=== PATIENT | female | born 1975 | race Caucasian/White ===

== ENCOUNTER → 2022-12-03 16:08 | Outpatient (CLI) | payer OTHER, SELFPAY ==
--- NOTE | 2022-12-03 | DI.MG.S_ITS ---
BILATERAL DIGITAL SCREENING MAMMOGRAM 3D/2D WITH CAD: 12/03/2022 CLINICAL: Routine screening. Family history of breast cancer. Comparison is made to exams dated: 01/05/2021 mammogram, 11/18/2017 mammogram, and 08/02/2016 mammogram - Outside facility. Both breasts are heterogeneously dense, which may obscure small masses (category c / 51-75% glandular tissue). Current study was also evaluated with a Computer Aided Detection (CAD) system. No significant masses, calcifications, or other findings are seen in either breast. There has been no significant interval change. IMPRESSION: NEGATIVE There is no mammographic evidence of malignancy. A 1 year screening mammogram is recommended. Based on the Tyrer Cuzick model (a risk assessment model) the patient's lifetime risk is 12.8% and her 10 year risk is 2.8%. According to the ACR, ACS, and NCCN guidelines, an annual breast MRI exam along with mammogram is recommended if the patient's lifetime risk is 20% or greater. This exam was interpreted at Station ID: [id number]. NOTE: For mammograms, a report in lay terms will be sent to the patient. Approximately 15% of breast malignancies will not be visualized mammographically. In the management of a palpable breast mass, a negative mammogram must not discourage biopsy of a clinically suspicious lesion. Electronically Signed By: Ajay barron/es:12/05/2022 13:18:25 letter sent: Normal Exam ACR BI-RADS Category 1: Negative 3341F
== END ==
PROVIDERS: PCP Registered Nurse; Referring Provider Registered Nurse; Visit Provider Registered Nurse
DX: Z12.31 Encounter for screening mammogram for malignant neoplasm of breast (principal); Z80.3 Family history of malignant neoplasm of breast
CPT/HCPCS: 77063; 77067

== ENCOUNTER → 2023-07-26 09:22 | Outpatient (CLI) | payer OTHER, SELFPAY ==
--- NOTE | 2023-07-26 09:23 | DI.US.S_ITS ---
ULTRASOUND OF RIGHT AXILLA: 07/26/2023 CLINICAL: Palpable right axilla lump. Comparison is made to exams dated: 07/26/2023 mammogram, 12/03/2022 mammogram - [facility], 01/05/2021 mammogram, and 11/18/2017 mammogram - Outside facility. Color flow and real-time ultrasound of the right axilla were performed. Beavers scale images of the real-time examination were reviewed. No enlarged right axillary lymph nodes. No mass or fluid collection. IMPRESSION: BENIGN There is no sonographic evidence of malignancy. No enlarged right axillary lymph nodes. No mass or fluid collection. Possible scant ectopic breast tissue at the right axilla seen on mammogram. Exam findings were conveyed to the patient. Patient is advised to monitor for significant change. A 1 year screening mammogram is recommended. This exam was interpreted at Station ID: [id number]. Electronically Signed By: Shaahb Murray M.D. slc/:07/26/2023 11:52:00 Entry: - 07/30/2023 11:33:33 letter sent: Normal Exam Ultrasound BI-RADS: 2 Benign
--- NOTE | 2023-07-26 09:23 | DI.MG.S_ITS ---
UNILATERAL RIGHT DIGITAL DIAGNOSTIC MAMMOGRAM 3D/2D: 07/26/2023 CLINICAL: Palpable right axilla lump. Comparison is made to exams dated: 12/03/2022 mammogram - [facility], 01/05/2021 mammogram, and 11/18/2017 mammogram - Outside facility. The right breast is heterogeneously dense, which may obscure small masses (category c / 51-75% glandular tissue). No significant masses, calcifications, or other findings are seen in the breast. Small right axillary lymph nodes appear normal and unchanged. IMPRESSION: INCOMPLETE: NEEDS ADDITIONAL IMAGING EVALUATION No mammographic evidence of malignancy. A targeted ultrasound is recommended and will immediately follow. Based on the Tyrer Cuzick model (a risk assessment model) the patient's lifetime risk is 12.8% and her 10 year risk is 2.9%. According to the ACR, ACS, and NCCN guidelines, an annual breast MRI exam along with mammogram is recommended if the patient's lifetime risk is 20% or greater. This exam was interpreted at Station ID: [id number]. NOTE: For mammograms, a report in lay terms will be sent to the patient. Approximately 15% of breast malignancies will not be visualized mammographically. In the management of a palpable breast mass, a negative mammogram must not discourage biopsy of a clinically suspicious lesion. Electronically Signed By: Shahab Murray M.D. slc/:07/26/2023 10:17:31 ACR BI-RADS Category 0: Incomplete 3340F
== END ==
LOC: MAMMO 09:22
PROVIDERS: PCP Registered Nurse; Referring Provider Registered Nurse; Visit Provider Registered Nurse
DX: R92.2 Inconclusive mammogram (principal); R92.331 Mammographic heterogeneous density, right breast; N63.31 Unspecified lump in axillary tail of the right breast
CPT/HCPCS: 76882; 77065; G0279

== ENCOUNTER → 2025-01-29 12:03 | Outpatient (CLI) | payer BC, SELFPAY ==
--- NOTE | 2025-01-29 12:05 | DI.MG.S_ITS ---
MM diagnostic mammo BI, US breast RT limited: 01/29/2025 BI-RADS: 2 CLINICAL: 49-year old female for bilateral diagnostic mammogram and right diagnostic breast ultrasound. Tyrer-Cuzick lifetime risk of 31.3%. No personal or first- degree family history of breast cancer. Current reported family history of breast cancer: maternal grandmother and maternal uncle's daughter. The patient reports a palpable swelling and tenderness on palpation (more than 2 years) in the right axilla. PRIOR EXAMS 07/26/2023, 12/03/2022, 01/05/2021. MAMMOGRAPHY TECHNIQUE: 2D and 3D (tomosynthesis) digital mammographic views obtained, with additional images as needed for full coverage. Current study was also evaluated with a Computer Aided Detection (CAD) system. ULTRASOUND TECHNIQUE: Real-time hurd scale and color doppler imaging of the area of clinical interest was performed with image documentation. Exam is limited to the right axilla. DENSITY D. The breasts are extremely dense, which lowers the sensitivity of mammography. MAMMOGRAPHY FINDINGS Right (finding-1): MLO only, Axilla: Correlating with patient concern, there is an asymmetry seen only on one view that is unchanged in size and appearance. This is compatible with benign accessory breast tissue. Left: No suspicious mass, asymmetry, microcalcification, or other abnormality seen. ULTRASOUND FINDINGS Right (finding-1): Axilla: Correlating with the patient's area of concern, there is fibroglandular tissue in the axilla compatible with the benign accessory breast tissue seen on mammogram. No abnormal lymph nodes are seen in the axilla. IMPRESSION: Right * No evidence of malignancy with benign findings. Left * No evidence of malignancy. RECOMMENDATIONS Bilateral * Annual screening mammography. COMMENTS: Findings and recommendations were conveyed to the patient during today's evaluation. According to the Tyrer-Cuzick Risk Assessment Model, based on the information provided your patient has a greater than 20% lifetime risk for developing breast cancer. Consider supplemental screening with breast MRI and participation in a high-risk screening program. OVERALL ASSESSMENT CATEGORY BI-RADS-2: Benign. The [employer] recommends annual screening mammography beginning at age 40 for women with average risk of breast cancer. ELECTRONICALLY SIGNED: Alissa Berry M.D. on 01/29/2025 at 01:51:55 PM PT Interpreting Station ID: [id number]
== END ==
LOC: MAMMO 12:04
PROVIDERS: PCP Registered Nurse; Referring Provider Registered Nurse; Visit Provider Registered Nurse
DX: N64.4 Mastodynia (principal); N64.89 Other specified disorders of breast; R92.343 Mammographic extreme density, bilateral breasts; R22.31 Localized swelling, mass and lump, right upper limb; Z80.3 Family history of malignant neoplasm of breast
CPT/HCPCS: 76642; 77066; G0279